=== PATIENT | female | born 1960 | race Two or more races ===

== ENCOUNTER → 2018-07-14 | Day surgery (SDC) | payer OTHER ==
--- NOTE | 2018-07-14 12:14 | OP ---
DATE OF OPERATION: 07/14/2018 PREOPERATIVE DIAGNOSIS: Abnormal left mammography. POSTOPERATIVE DIAGNOSIS: Abnormal left mammography. PROCEDURE: Left stereotactic needle biopsy with clips. SURGEON: Georgina Wallace MD ANESTHESIA: Local. COMPLICATIONS: None. This was a sterile procedure. INDICATIONS FOR PROCEDURE: Patient had routine screening mammography that noted cluster of microcalcifications in the inner left breast. Recommendation was needle biopsy. The procedure was discussed with all her questions answered. PROCEDURE IN DETAIL: Patient brought to [facility] [place]. Laid prone on the [place] table. Using a medial approach the calcifications in the medial left breast were identified. A sterile prep obtained. A target was chosen. There was a positive stroke margin. Using Betadine and 1% lidocaine a 9-gauge Suros device was used to take several cores from this area. Cores showed calcifications within them. These were handled using the usual calcification protocol. A clip was deployed in the area. Hemostasis was assured with direct pressure. The incision was closed with Steri-Strips. She tolerated the procedure well and left the breast imaging center in good condition. GEORGINA WALLACE M.D. [id number]
--- NOTE | 2018-07-15 16:01 | PATH ---
Surgical Pathology Report Patient Name: FRED SHARP [facility]. Rec. #: [id number] /Age/Gender: 1960 (Age: 57) / F Account: [id number] Location: [facility] Taken: 07/14/2018 Received: 07/14/2018 Reported: 07/15/2018 Physicians: Georgina Hendricks M.D. Specimen(s) Received A: LEFT BREAST SPECIMEN-WITH CALSIFICATIONS B: LEFT BREAST SPECIMEN-WITHOU CALCIFICATIONS Clinical History Mammographic findings: Microcalcification, suspicious Final Diagnosis A. BREAST, LEFT, WITH CALCIFICATIONS, STEREOTACTIC BIOPSY: INVASIVE DUCTAL CARCINOMA, MODERATELY DIFFERENTIATED, MEASURING 3 MM IN GREATEST DIMENSION IN THIS MATERIAL. (SEE NOTE) FOCAL DUCTAL CARCINOMA IN SITU (DCIS), SOLID TYPE, INTERMEDIATE NUCLEAR GRADE WITH ASSOCIATED CALCIFICATIONS. Note: Myoepithelial immunohistochemical markers (SMM-HC and p63, performed at [facility]) demonstrate the lack of myoepithelial cells in the invasive carcinoma. This finding supports the diagnosis. B. BREAST, LEFT, WITHOUT CALCIFICATIONS, STEREOTACTIC BIOPSY: INVASIVE DUCTAL CARCINOMA, MODERATELY DIFFERENTIATED, MEASURING 3 MM IN GREATEST DIMENSION. IN THIS MATERIAL. Results of ER and HI studies performed on block A at [facility] are as follows: ER (clone [id number] mouse monoclonal antibody by [employer]): ~80 % nuclear staining with moderate to weak intensity (Positive). HI (clone16 mouse monoclonal antibody by [employer]): 0 % nuclear staining (Negative). Results of Her2 & Ki67 studies will be reported separately in an addendum. Positive and negative controls (internal if applicable) show appropriate results. Formalin fixation and cold ischemic times are within current ASCO/CAP recommendations for ER, HI and Her2 testing. Electronically Signed Sara Ward M.D. Addendum Reported: 07/16/2018 Addendum Diagnosis Results of Her2 (IHC) & Ki-67 studies performed on block A at [place], [place] ([id number]) are as follows: Her2 IHC (EP3 from [employer], formerly known as [id number], using [employer] Polymer Refine detection kit): 3+ (positive). Ki-67: ~10% (low proliferative index). Positive and negative controls (internal if applicable) show appropriate results. Sara Ward M.D. Gross Description A. Received in formalin labeled "left breast with calcifications," is a 2.0 x 1.7 x 0.3 cm aggregate of multiple rod-yellow, irregular to cylindrical portions of fibroadipose tissue. The formalin is filtered and the specimen is entirely submitted in one cassette. B. Received in formalin labeled "left breast without calcifications," is a 3.0 x 1.8 x 0.3 cm aggregate of multiple rod-yellow, irregular to cylindrical portions of fibroadipose tissue. The formalin is filtered and the specimen is entirely submitted in 2 cassettes. Time to formalin fixation: 5 minutes Total formalin fixation time: Approximately 7 hours. 07/14/2018 [facility]07/14/2018
== END | disposition home or self-care (01) ==
LOC: FMAMMOTONE 10:32
PROVIDERS: ATTEND Surgery
PROC: 0HBU3ZX Excision of Left Breast, Percutaneous Approach, Diagnostic (ICD-10-PCS; principal; 2018-07-14)
DX: C50.812 Malignant neoplasm of overlapping sites of left female breast (principal); D05.12 Intraductal carcinoma in situ of left breast; Z17.0 Estrogen receptor positive status [ER+]; R92.8 Other abnormal and inconclusive findings on diagnostic imaging of breast
CPT/HCPCS: 19081; 87899; 88305-TC; 88341-TC; 88342-TC; A4648

== ENCOUNTER 2018-08-06 07:28 | Day surgery (SDC) | payer OTHER ==
[2018-07-26 09:01] VITALS: BMI 26.6
[~2018-08-06 07:28] MED LIST: LIDOCAINE HCL 1%, 10 MG/ML (20ML VIAL) PNB ONE; METHYLENE BLUE 1% 10 MG/1 ML VIAL NR ONE
[2018-08-06 08:19] LABS: EPI CELLS 8.6 /HPF (0-5/HPF); PH,URINE 6.5 (5.0-8.0); URINE APPEARANCE CLEAR; URINE BACTERIA 245.4 /hpf (NEGATIVE); URINE BILIRUBIN NEGATIVE (NEGATIVE); URINE CASTS 5 /lpf (0-8); URINE COLOR YELLOW; URINE GLUCOSE (UA) NEGATIVE (NEGATIVE); URINE KETONE NEGATIVE (NEGATIVE); URINE LEUK ESTERASE 1+ (NEGATIVE); URINE NITRITE NEGATIVE (NEGATIVE); URINE PROTEIN NEGATIVE (NEGATIVE); URINE RBC 2 /hpf (0-4); URINE UROBILINOGEN 0.2 mg/dL (0.2-1.0); URINE WBC 7 /hpf (0-5)
[2018-08-06] MEDS ORDERED: LIDOCAINE HCL 1%, 10 MG/ML (20ML VIAL) ONE (10:58)
--- NOTE | 2018-08-06 13:28 | HP ---
History & Physical Update - History History: No Change - Physical Physical: No Change - Assessment Assessment: No Change - Plan Plan: No Change (no changes since visit on 07/24/[address] Avalos)
[2018-08-06] MEDS ORDERED: ceFAZolin SODIUM 1 GM VIAL ONE (13:41)
[2018-08-06] MEDS ORDERED: LIDOCAINE HCL/PF 2% SDV 5ML VIAL ONE (13:41)
[2018-08-06] MEDS ORDERED: MIDAZOLAM HCL 2 MG/2 ML SINGLE DOSE VIAL ONE (13:41)
[2018-08-06] MEDS ORDERED: DEXAMETHASONE SOD PHOSPHATE 4 MG/1 ML VIAL ONE (13:41)
[2018-08-06] MEDS ORDERED: PROPOFOL 20 ML ONE ×2 (13:41→13:49)
[2018-08-06] MEDS ORDERED: ePHEDrine SULFATE 50 MG/1 ML AMPULE ONE (13:53)
[2018-08-06] MEDS ORDERED: METHYLENE BLUE 1% 10 MG/1 ML VIAL NR ONE (14:05)
[2018-08-06] MEDS ORDERED: LIDOCAINE HCL 1%, 10 MG/ML (20ML VIAL) PNB ONE (14:05)
[2018-08-06] MEDS ORDERED: oxyCODONE HCL 5 MG TABLET PO PRN (15:28)
[2018-08-06] MEDS ORDERED: PROMETHAZINE HCL 25 MG/1 ML VIAL IVPUSH PRN (15:28)
[2018-08-06] MEDS ORDERED: ONDANSETRON 4 MG/2 ML VIAL IVPUSH PRN (15:28)
--- NOTE | 2018-08-06 15:40 | SURG ---
Surgery Plaster Applicator Note Plaster Applicator: Sara Willoughby PA-C Date of Service: 08/06/18 Diagnosis: left breast CA- invasive ductal cell Procedure: Left Breast wire localization lumpectomy with axillary dissection and sentinel lymph node biopsy I was present for the entirety of the operative procedure. For further detail, please refer to operative report. Visit type - Case Type Case Type: Scheduled - Emergency Emergency Visit: No - New patient This patient is new to me today: Yes Date on this admission: 08/06/18
[2018-08-06 17:39] VITALS: PULSE 80
[2018-08-06 18:16] VITALS: BP 132/86; TEMP 97.6
--- NOTE | 2018-08-07 08:49 | OP ---
DATE OF OPERATION: 08/06/2018 PREOPERATIVE DIAGNOSIS: Left breast cancer. POSTOPERATIVE DIAGNOSIS: Left breast cancer. PROCEDURE: Left breast bracket wire localized lumpectomy and sentinel lymph node biopsy. SURGEON: Georgina Hendricks MD TUNNEL MINER: SOLOMON Guzman ANESTHESIA: General with Dr. Durham ESTIMATED BLOOD LOSS: Minimal. COMPLICATIONS: None. This was a sterile procedure. INDICATION FOR PROCEDURE: Patient presented with a screening mammography that noted cluster of microcalcifications in the inner left breast. A stereotactic needle biopsy showed an invasive carcinoma. My recommendation was a lumpectomy with sentinel node biopsy. The procedure was discussed with all of the questions answered. PROCEDURE IN DETAIL: Patient was brought to [facility] in [place] and taken to Mammography where a wire was used to localize the clip that was slightly posterior to the calcification. There were residual calcifications, which were more anterior; therefore, 2 wires were placed for bracket wiring by Dr. Hobbs, the radiologist. She was then taken to Nuclear Medicine where I injected the patient with sulfur colloid as an intradermal injection in the left breast 9 o'clock periareolar border. Patient then was brought to the operating room, and after induction of general anesthesia and IV antibiotics, 2.5 mL of Methylene blue diluted with 2.5 mL of injectable saline was injected into the left subaerolar plexus by me, and the breast was massaged for 5 minutes. The left breast and axilla were then prepped and draped in the usual sterile fashion. The 4-cm incision was made in the left axilla, carried down to the clavipectoral fascia to identify 4 sentinel lymph nodes that were all blue and hot. These were sent to Pathology for permanent section. There was no other blue dye radioactivity within the axilla after that. Therefore, once hemostasis was assured, the axilla was packed, and then the left breast lumpectomy was performed. Radial incisions were made in the inner left breast, and the wires were used to guide me to the area of interest. This was excised en bloc and sent as a left breast lumpectomy with a long stitch lateral, short stitch superior for a specimen radiograph. I felt that I was close anteriorly; therefore, I took a new superior anterior margin and a new inferior anterior margin overlying the tumor with a stitch at the old margin. These were all sent to Pathology for permanent section. The lumpectomy showed the clip and wire to be intact within the specimen. Hemostasis was assured with electrocautery. The parenchyma was approximated with interrupted 2-0 Vicryl, skin approximated with interrupted 3-0 Vicryl, running 4-0 Prolene. A sterile dressing with Tegaderm and 4 x 4 was applied. In re-exploring the axilla to get hemostasis, I noticed another blue lymph node that was also hot. This was taken as sentinel lymph node No. 5 blue and hot and sent to Pathology for permanent section as well. There was 1 non sentinel lymph node in vivo felt had activity; however, ex vivo did not so was sent as left axillary non sentinel lymph node. Once hemostasis was assured, the axillary incision was also closed in a routine fashion with interrupted 3-0 Vicryl, running 4-0 Prolene. A sterile dressing with Tegaderm, 4 x 4 was applied as well as a mammary binder. She tolerated the procedure well, was extubated on the operating room table, taken to recovery in good condition. Roma [id number]
== END 2018-08-06 20:20 | disposition home or self-care (01) ==
LOC: JASU-SURG 07:28
PROVIDERS: ATTEND Surgery
PROC: 0HBU0ZZ Excision of Left Breast, Open Approach (ICD-10-PCS; principal; 2018-08-06 12:00)
PROC: 07B60ZX Excision of Left Axillary Lymphatic, Open Approach, Diagnostic (ICD-10-PCS; 2018-08-06 12:00)
DX: C50.912 Malignant neoplasm of unspecified site of left female breast (principal)
CPT/HCPCS: 19281; 78195-TC; 81003; 84703; 94760; A9541